=== PATIENT | male | born 1945 | race Caucasian/White ===

== ENCOUNTER → 2020-02-26 | Day surgery (SDC) | payer MEDICARE ==
[~2020-02-26] MED LIST: LIPITOR20 MG PO; MEN'S MULTIVIT1 EACH PO; NORCO 5-325 TA1 EACH PO; TOPROL XL 50 MG50 MG PO
[2020-02-26 09:40] LABS: HCT 43.6 % (42.0-52.0); HGB 14.6 g/dl (13.2-18.0); MCH 31.5 pg (25.0-31.0); MCHC 33.5 g/dL (32.0-36.0); MPV 9.3 fL (6.0-9.5); RBC 4.64 M/uL (4.70-6.00); RDW 12.8 % (11.5-14.0); WBC 5.02 K/uL (4.0-10.5)
[2020-02-26 09:53] LABS: ALBUMIN 3.9 g/dL (3.4-5.0); BILIRUBIN - TOTAL 0.6 mg/dL (0.2-1.0); BUN/CREAT RATIO (CALC) 25.5 RATIO; CREATININE 1.02 mg/dL (0.67-1.17); GLOBULIN (CALCULATION) 3.5 g/dL; POTASSIUM 4.1 mmol/L (3.5-5.1); TOTAL PROTEIN 7.4 g/dL (6.4-8.2)
== END | disposition home or self-care (01) ==
LOC: FAS 08:28
PROVIDERS: Surgery
DX: I87.2 Venous insufficiency (chronic) (peripheral) (principal); C85.90 Non-Hodgkin lymphoma, unspecified, unspecified site; I10 Essential (primary) hypertension; Z79.899 Other long term (current) drug therapy
CPT/HCPCS: 36415; 80053; J2250; J2405; J2704; J7120

== ENCOUNTER → 2021-09-28 | Day surgery (SDC) | payer MEDICARE ==
[~2021-09-28] VITALS: Ht 180.3 cm; Wt 87.1 kg
[2021-09-28 09:23] LABS: HCT 46.3 % (42.0-52.0); HGB 15.4 g/dl (13.2-18.0); MCH 31.6 pg (25.0-31.0); MCHC 33.3 g/dL (32.0-36.0); MCV 94.9 fL (78.0-100.0); MPV 9.7 fL (6.0-9.5); RBC 4.88 M/uL (4.70-6.00); RDW 13.1 % (11.5-14.0); WBC 5.1 K/uL (4.0-10.5)
[2021-09-28 09:51] LABS: ALBUMIN 4.6 g/dL (3.4-5.0); BILIRUBIN - TOTAL 1.1 mg/dL (0.2-1.0); BUN/CREAT RATIO (CALC) 16.2 RATIO; CREATININE 1.05 mg/dL (0.67-1.17); GLOBULIN (CALCULATION) 2.9 g/dL; TOTAL PROTEIN 7.5 g/dL (6.4-8.2)
== END | disposition home or self-care (01) ==
LOC: FAS 08:43
PROVIDERS: Surgery
DX: Z12.11 Encounter for screening for malignant neoplasm of colon (principal); D12.6 Benign neoplasm of colon, unspecified; I10 Essential (primary) hypertension
CPT/HCPCS: 36415; 80053; J1610; J2250; J2704; J7120